=== PATIENT | male | born 1965 | race Caucasian/White ===

== ENCOUNTER 2016-07-17 08:34 | Emergency (ER) | payer OTHER, BC ==
[2016-07-17 08:49] VITALS: TEMP 97
[2016-07-17] MEDS ORDERED: TDAP VACCINE 0.5 ML SUS IM ONE ×2 (09:06→09:16)
[2016-07-17 13:22] VITALS: BP 145/88; PULSE 65; RESP 16; O2SAT 100
== END 2016-07-17 09:45 | disposition home or self-care (01) | DRG 605 ==
LOC: ED 08:34
DX: S01.01XA Laceration without foreign body of scalp, initial encounter (principal); W26.8XXA Contact with other sharp object(s), not elsewhere classified, initial encounter
CPT/HCPCS: 12002; 90471; 90715; 99284; G0168; A6402